=== PATIENT | male | born 1935 | race Caucasian/White ===

== ENCOUNTER 2020-12-02 14:46 | Inpatient (IN) | payer OTHER ==
[~2020-12-02] VITALS: Ht 170.2 cm; Wt 62.2 kg
[~2020-12-02 14:46] MED LIST: ALLO300T2 PO; AMLO-489 PO; LISI40TA11 PO
[2020-12-02 16:32] LABS: Urine Bacteria FEW /hpf (None Seen); Urine Blood 3+ /uL (Negative); Urine Mucus FEW (None Seen); Urine Specific Gravity 1.019 (1.001-1.035); Urine WBC <1 /hpf (0 - 3)
[2020-12-02] MEDS ORDERED: SODIUM CHLORIDE 0.9% 1,000 ML IVB ONE (17:30)
[2020-12-02 18:24] LABS: Basophils # (auto) 0 10 ^3/uL (0-0.2); Eosinophils # (auto) 0 10 ^3/uL (0-0.8); White Blood Cell 11.6 10^3/uL (4.4-10.8)
[2020-12-02 18:25] LABS: Basophils % (auto) 0.1 % (0.0-2.0); Hematocrit 52.6 % (41.0-53.0); Hemoglobin 18.1 g/dL (13.5-17.5); Lymphocytes # (auto) 0.9 10 ^3/uL (0.4-5.4); Lymphocytes % (auto) 7.3 % (10.0-50.0); Mean Corpuscular Hemoglobin 33.6 pg (28.0-32.0); Mean Corpuscular Hgb Conc. 34.4 g/dL (32.0-36.0); Mean Corpuscular Volume 97.6 fL (80.0-100.0); Monocytes # (auto) 1.6 10 ^3/uL (0-1.3); Monocytes % (auto) 13.8 % (0.0-12.0); Neutrophils # (auto) 9.1 10 ^3/uL (1.6-8.6); Neutrophils % (auto) 78.8 % (37.0-80.0); Nucleated Red Blood Cells % 0.5 %; Platelet Count (auto) 157 10^3/uL (140-450); Red Blood Cells 5.39 10^6/uL (4.5-5.90); Red Cell Distribution Width 15.8 % (11.8-14.3)
[2020-12-02 18:39] LABS: Albumin 3.1 g/dL (3.4-5.0); Calcium 8.8 mg/dL (8.5-10.1); Potassium 3.4 mmol/L (3.5-5.1)
[2020-12-02 18:40] LABS: INR 1.15 (0.9-1.15); Partial Thromboplastin Time 28.5 sec (23.0-31.2)
[2020-12-02 18:46] LABS: BUN/Creatinine Ratio 28.3; Bilirubin, Total 4.8 mg/dL (0.2-1.0); Total Protein 6.1 g/dL (6.4-8.2)
[2020-12-02] MEDS ORDERED: ONDANSETRON HCL 4 MG/2 ML VIAL IV PRN (23:00)
[2020-12-02] MEDS ORDERED: POTASSIUM CHL 20MEQ/100ML 100 ML IV ONE (23:00)
[2020-12-02] MEDS ORDERED: MORPHINE SULF INJ 2 MG/ML SYRINGE 1ML IV PRN (23:00)
[2020-12-02] MEDS ORDERED: DEXTROSE (50%) 50ML SYRG IV PRN (23:00)
[2020-12-02] MEDS ORDERED: NITROGLYCERIN 0.4 MG SL TAB SL PRN (23:00)
[2020-12-02] MEDS: SOD CHL 0.45% 1,000 ML IV SCH (23:00)
[2020-12-02] MEDS ORDERED: DOCUSATE SOD 100 MG CAP PO PRN (23:00)
[2020-12-02] MEDS ORDERED: ACETAMINOPHEN 325 MG TAB PO PRN (23:00)
[2020-12-03 05:24] LABS: Basophils # (auto) 0 10 ^3/uL (0-0.2); Basophils % (auto) 0.3 % (0.0-2.0); Eosinophils # (auto) 0 10 ^3/uL (0-0.8); Lymphocytes # (auto) 0.8 10 ^3/uL (0.4-5.4); Monocytes # (auto) 1.1 10 ^3/uL (0-1.3); Red Blood Cells 4.93 10^6/uL (4.5-5.90)
[2020-12-03 05:26] LABS: Eosinophils % (auto) 0.6 % (0.0-7.0); Hemoglobin 16.8 g/dL (13.5-17.5); Lymphocytes % (auto) 9.8 % (10.0-50.0); Mean Corpuscular Hemoglobin 34.1 pg (28.0-32.0); Mean Corpuscular Volume 97.4 fL (80.0-100.0); Monocytes % (auto) 14.1 % (0.0-12.0); Neutrophils # (auto) 5.8 10 ^3/uL (1.6-8.6); Neutrophils % (auto) 75.2 % (37.0-80.0); Nucleated Red Blood Cells % 0.2 %; Platelet Count (auto) 116 10^3/uL (140-450); Red Cell Distribution Width 15.3 % (11.8-14.3); White Blood Cell 7.7 10^3/uL (4.4-10.8)
[2020-12-03 06:25] LABS: Anion Gap 11 (5-15); BUN/Creatinine Ratio 31.2; Blood Urea Nitrogen 29 mg/dL (7-18); Carbon Dioxide 23 mmol/L (21-32); Chloride 105 mmol/L (98-107); GFR African American 100 mL/min; GFR Non-African American 82 mL/min; Potassium 3.7 mmol/L (3.5-5.1); Sodium 139 mmol/L (136-145)
[2020-12-03 06:26] LABS: Alanine Aminotransferase 59 U/L (16-61); Albumin 2.7 g/dL (3.4-5.0); Alkaline Phosphatase 131 U/L (45-117); Aspartate Aminotransferase 173 U/L (15-37); Bilirubin, Total 4.1 mg/dL (0.2-1.0); Calcium 7.8 mg/dL (8.5-10.1); Total Protein 5.4 g/dL (6.4-8.2)
[2020-12-03 06:42] LABS: Cholesterol 115 mg/dL (< 200); Glucose 69 mg/dL (74-106); Triglycerides 80 mg/dL (< 150)
[2020-12-03 06:44] LABS: HDL Cholesterol 92 mg/dL (40-59)
[2020-12-03 06:50] LABS: LDL Cholesterol 30 mg/dL (< 100)
[2020-12-03] MEDS: InsuLIN REG 1unit/0.01ml Soln (100units/ml) SC SCH ×4 (07:00→22:00)
[2020-12-03] MEDS: ACCU-CHEK COMFORT CURVE STRIP VI SCH ×4 (07:06→22:29)
[2020-12-03] MEDS: ASCORBIC ACID 500 MG TAB PO SCH ×2 (10:12→22:29)
[2020-12-03] MEDS: MULTIPLE VITAMIN TAB PO SCH (10:12)
[2020-12-03] MEDS: FAMOTIDINE 20 MG TAB PO SCH ×2 (10:12→22:29)
[2020-12-03] MEDS: ZINC SULFATE 220mg CAP or TAB PO SCH (10:12)
[2020-12-03] MEDS: ASPirin 81 mg TAB PO SCH (10:12)
[2020-12-03] MEDS: ALLOPURINOL 100 MG TAB PO SCH (10:12)
[2020-12-03 17:30] VITALS: BP 156/112
[2020-12-03] MEDS: hydrALAZINE HCL 10 MG TAB PO PRN (17:58)
[2020-12-03] MEDS: SOD CHL 0.45% 1,000 ML IV SCH (20:00)
[2020-12-03] MEDS ORDERED: LORazepam 2MG/ML-1ML VIAL IV PRN (21:15)
[2020-12-03 22:05] VITALS: BP 159/84
[2020-12-03] MEDS: ATORVASTATIN 20 MG TAB PO SCH (22:29)
[2020-12-04 05:09] VITALS: BP 166/80
[2020-12-04] MEDS: ACCU-CHEK COMFORT CURVE STRIP VI SCH ×4 (07:00→22:00)
[2020-12-04] MEDS: InsuLIN REG 1unit/0.01ml Soln (100units/ml) SC SCH ×3 (07:00→17:00)
[2020-12-04 07:22] LABS: Basophils # (auto) 0 10 ^3/uL (0-0.2); Basophils % (auto) 0.4 % (0.0-2.0); Eosinophils # (auto) 0.1 10 ^3/uL (0-0.8); Eosinophils % (auto) 1.7 % (0.0-7.0); Hematocrit 46.9 % (41.0-53.0); Hemoglobin 16.4 g/dL (13.5-17.5); Lymphocytes # (auto) 1.1 10 ^3/uL (0.4-5.4); Lymphocytes % (auto) 15.9 % (10.0-50.0); Mean Corpuscular Hemoglobin 33.6 pg (28.0-32.0); Mean Corpuscular Hgb Conc. 34.9 g/dL (32.0-36.0); Mean Corpuscular Volume 96.3 fL (80.0-100.0); Monocytes % (auto) 14.4 % (0.0-12.0); Neutrophils # (auto) 4.9 10 ^3/uL (1.6-8.6); Neutrophils % (auto) 67.6 % (37.0-80.0); Nucleated Red Blood Cells % 0.2 %; Platelet Count (auto) 109 10^3/uL (140-450); Red Blood Cells 4.87 10^6/uL (4.5-5.90); Red Cell Distribution Width 15.2 % (11.8-14.3); White Blood Cell 7.2 10^3/uL (4.4-10.8)
[2020-12-04 07:36] LABS: BUN/Creatinine Ratio 28.9; Calcium 7.9 mg/dL (8.5-10.1); Magnesium 1.8 mg/dL (1.6-2.6); Potassium 3.2 mmol/L (3.5-5.1)
[2020-12-04] MEDS: MULTIPLE VITAMIN TAB PO SCH (08:35)
[2020-12-04] MEDS: ASPirin 81 mg TAB PO SCH (08:35)
[2020-12-04] MEDS: ALLOPURINOL 100 MG TAB PO SCH (08:36)
[2020-12-04] MEDS: FAMOTIDINE 20 MG TAB PO SCH ×2 (08:36→22:00)
[2020-12-04] MEDS: ASCORBIC ACID 500 MG TAB PO SCH ×2 (08:37→22:00)
[2020-12-04] MEDS: ZINC SULFATE 220mg CAP or TAB PO SCH (08:38)
[2020-12-04] MEDS: HYDROcodone-ACET 5/325MG TAB PO PRN ×3 (08:38→23:30)
[2020-12-04] MEDS ORDERED: HALOPERIDOL LACTATE 5 MG/ML INJ VIAL ONE (09:11)
[2020-12-04] MEDS ORDERED: CYANOCOBALAMIN (B-12) 1000 MCG/1 ML VIAL IM ONE (09:15)
[2020-12-04 12:29] LABS: Folate (Folic Acid) 7.72 ng/mL (5.38-24)
[2020-12-04 13:08] VITALS: BP 150/77
[2020-12-04] MEDS ORDERED: POTASSIUM CHL 20 Meq TABLET PO ONE (17:00)
[2020-12-04 17:18] VITALS: BP 134/77
[2020-12-04] MEDS: CYANOCOBALAMIN 500 MCG TAB PO SCH (17:37)
[2020-12-04] MEDS: D5W/SOD CHL 0.45% 1,000 ML IV SCH (20:30)
[2020-12-04 21:57] VITALS: BP 169/111
[2020-12-04] MEDS: ATORVASTATIN 20 MG TAB PO SCH (22:00)
[2020-12-05] MEDS: HALOPERIDOL LACTATE 5 MG/ML INJ VIAL IM PRN ×2 (02:14→22:15)
[2020-12-05 05:00] VITALS: BP 167/94
[2020-12-05] MEDS: ACCU-CHEK COMFORT CURVE STRIP VI SCH ×4 (07:00→22:15)
[2020-12-05 07:12] LABS: Basophils # (auto) 0.1 10 ^3/uL (0-0.2); Basophils % (auto) 1.1 % (0.0-2.0); Eosinophils # (auto) 0.2 10 ^3/uL (0-0.8); Eosinophils % (auto) 2.8 % (0.0-7.0); Hematocrit 43.7 % (41.0-53.0); Hemoglobin 15.2 g/dL (13.5-17.5); Lymphocytes % (auto) 16.7 % (10.0-50.0); Mean Corpuscular Hemoglobin 33.4 pg (28.0-32.0); Mean Corpuscular Hgb Conc. 34.7 g/dL (32.0-36.0); Mean Corpuscular Volume 96.4 fL (80.0-100.0); Monocytes # (auto) 0.8 10 ^3/uL (0-1.3); Monocytes % (auto) 14.4 % (0.0-12.0); Neutrophils # (auto) 3.7 10 ^3/uL (1.6-8.6); Nucleated Red Blood Cells % 0.2 %; Platelet Count (auto) 120 10^3/uL (140-450); Red Blood Cells 4.54 10^6/uL (4.5-5.90); Red Cell Distribution Width 14.9 % (11.8-14.3); White Blood Cell 5.7 10^3/uL (4.4-10.8)
[2020-12-05 07:30] LABS: Calcium 7.9 mg/dL (8.5-10.1); Magnesium 1.7 mg/dL (1.6-2.6); Potassium 3.9 mmol/L (3.5-5.1)
[2020-12-05 08:56] VITALS: BP 150/78
[2020-12-05] MEDS: ASPirin 81 mg TAB PO SCH (09:48)
[2020-12-05] MEDS: ZINC SULFATE 220mg CAP or TAB PO SCH (09:48)
[2020-12-05] MEDS: ALLOPURINOL 100 MG TAB PO SCH (09:49)
[2020-12-05] MEDS: CYANOCOBALAMIN 500 MCG TAB PO SCH (09:49)
[2020-12-05] MEDS: ASCORBIC ACID 500 MG TAB PO SCH ×2 (09:49→22:15)
[2020-12-05] MEDS: FAMOTIDINE 20 MG TAB PO SCH ×2 (09:49→22:15)
[2020-12-05] MEDS: MULTIPLE VITAMIN TAB PO SCH (09:49)
[2020-12-05 12:24] VITALS: BP 143/72
[2020-12-05] MEDS: D5W/SOD CHL 0.45% 1,000 ML IV SCH (16:00)
[2020-12-05 16:18] VITALS: BP 145/76
[2020-12-05] MEDS: ATORVASTATIN 20 MG TAB PO SCH (22:15)
[2020-12-06] MEDS: ACCU-CHEK COMFORT CURVE STRIP VI SCH ×4 (06:20→22:26)
[2020-12-06 07:58] LABS: Albumin 2.8 g/dL (3.4-5.0); Calcium 8.7 mg/dL (8.5-10.1); Magnesium 2.1 mg/dL (1.6-2.6); Potassium 3.8 mmol/L (3.5-5.1)
[2020-12-06 08:03] LABS: Bilirubin, Total 1.7 mg/dL (0.2-1.0); Total Protein 5.5 g/dL (6.4-8.2)
[2020-12-06 08:04] LABS: Basophils # (auto) 0 10 ^3/uL (0-0.2); Basophils % (auto) 0.8 % (0.0-2.0); Eosinophils # (auto) 0.2 10 ^3/uL (0-0.8); Eosinophils % (auto) 2.8 % (0.0-7.0); Lymphocytes % (auto) 18.1 % (10.0-50.0); Mean Corpuscular Hemoglobin 34.4 pg (28.0-32.0); Mean Corpuscular Hgb Conc. 35.5 g/dL (32.0-36.0); Monocytes # (auto) 0.8 10 ^3/uL (0-1.3); Monocytes % (auto) 14.4 % (0.0-12.0); Neutrophils # (auto) 3.6 10 ^3/uL (1.6-8.6); Neutrophils % (auto) 63.9 % (37.0-80.0); Nucleated Red Blood Cells % 0.2 %; Platelet Count (auto) 111 10^3/uL (140-450); Red Blood Cells 4.64 10^6/uL (4.5-5.90); Red Cell Distribution Width 15.5 % (11.8-14.3); White Blood Cell 5.7 10^3/uL (4.4-10.8)
[2020-12-06 09:00] VITALS: BP 121/74
[2020-12-06] MEDS: ASPirin 81 mg TAB PO SCH (09:59)
[2020-12-06] MEDS: ZINC SULFATE 220mg CAP or TAB PO SCH (09:59)
[2020-12-06] MEDS: FAMOTIDINE 20 MG TAB PO SCH ×2 (10:00→21:46)
[2020-12-06] MEDS: CYANOCOBALAMIN 500 MCG TAB PO SCH (10:00)
[2020-12-06] MEDS: MULTIPLE VITAMIN TAB PO SCH (10:00)
[2020-12-06] MEDS: ALLOPURINOL 100 MG TAB PO SCH (10:00)
[2020-12-06] MEDS: ASCORBIC ACID 500 MG TAB PO SCH ×2 (10:00→21:46)
[2020-12-06 12:34] VITALS: BP 151/79
[2020-12-06 17:00] VITALS: BP 150/84
[2020-12-06] MEDS: ATORVASTATIN 20 MG TAB PO SCH (21:46)
[2020-12-06 22:00] VITALS: BP 150/84
[2020-12-06] MEDS: hydrALAZINE HCL 10 MG TAB PO PRN (22:27)
[2020-12-07] MEDS ORDERED: hydrALAZINE HCL 20 MG/ML VL IV ONE (00:15)
[2020-12-07 05:04] VITALS: BP 159/81
[2020-12-07 06:19] LABS: Eosinophils # (auto) 0.2 10 ^3/uL (0-0.8); Mean Corpuscular Hgb Conc. 35.5 g/dL (32.0-36.0)
[2020-12-07] MEDS: ACCU-CHEK COMFORT CURVE STRIP VI SCH ×4 (06:20→21:36)
[2020-12-07 06:23] LABS: Basophils # (auto) 0.1 10 ^3/uL (0-0.2); Basophils % (auto) 0.9 % (0.0-2.0); Eosinophils % (auto) 2.6 % (0.0-7.0); Hematocrit 47.9 % (41.0-53.0); Lymphocytes # (auto) 1.2 10 ^3/uL (0.4-5.4); Lymphocytes % (auto) 18.6 % (10.0-50.0); Mean Corpuscular Hemoglobin 34.2 pg (28.0-32.0); Mean Corpuscular Volume 96.3 fL (80.0-100.0); Monocytes # (auto) 1.1 10 ^3/uL (0-1.3); Monocytes % (auto) 16.3 % (0.0-12.0); Neutrophils % (auto) 61.6 % (37.0-80.0); Nucleated Red Blood Cells % 0.1 %; Platelet Count (auto) 132 10^3/uL (140-450); Red Blood Cells 4.98 10^6/uL (4.5-5.90); Red Cell Distribution Width 15.6 % (11.8-14.3); White Blood Cell 6.5 10^3/uL (4.4-10.8)
[2020-12-07 06:39] LABS: BUN/Creatinine Ratio 28.4; Calcium 9.1 mg/dL (8.5-10.1); Magnesium 2.1 mg/dL (1.6-2.6); Potassium 3.3 mmol/L (3.5-5.1)
[2020-12-07 09:00] VITALS: BP 144/84
[2020-12-07] MEDS: ASPirin 81 mg TAB PO SCH (10:07)
[2020-12-07] MEDS: ZINC SULFATE 220mg CAP or TAB PO SCH (10:07)
[2020-12-07] MEDS: MULTIPLE VITAMIN TAB PO SCH (10:08)
[2020-12-07] MEDS: ALLOPURINOL 100 MG TAB PO SCH (10:08)
[2020-12-07] MEDS: CYANOCOBALAMIN 500 MCG TAB PO SCH (10:08)
[2020-12-07] MEDS: ASCORBIC ACID 500 MG TAB PO SCH ×2 (10:08→21:35)
[2020-12-07] MEDS: FAMOTIDINE 20 MG TAB PO SCH ×2 (10:08→21:35)
[2020-12-07 13:21] VITALS: BP 139/76
[2020-12-07] MEDS ORDERED: POTASSIUM CHL 20 Meq TABLET PO ONE (16:15)
[2020-12-07 16:57] VITALS: BP 135/89
[2020-12-07 18:45] VITALS: BP 158/88
[2020-12-07] MEDS: hydrALAZINE HCL 10 MG TAB PO PRN (18:45)
[2020-12-07] MEDS: ATORVASTATIN 20 MG TAB PO SCH (21:35)
[2020-12-07 22:00] VITALS: BP 152/78
[2020-12-08 05:00] VITALS: BP 126/64
[2020-12-08] MEDS: ACCU-CHEK COMFORT CURVE STRIP VI SCH ×2 (06:39→11:56)
[2020-12-08 07:03] LABS: Eosinophils # (auto) 0.2 10 ^3/uL (0-0.8); Hemoglobin 15.6 g/dL (13.5-17.5); Mean Corpuscular Hemoglobin 34.6 pg (28.0-32.0); Nucleated Red Blood Cells % 0.1 %
[2020-12-08 07:04] LABS: Basophils # (auto) 0 10 ^3/uL (0-0.2); Basophils % (auto) 0.7 % (0.0-2.0); Eosinophils % (auto) 3.7 % (0.0-7.0); Hematocrit 43.6 % (41.0-53.0); Lymphocytes # (auto) 1.1 10 ^3/uL (0.4-5.4); Lymphocytes % (auto) 18.9 % (10.0-50.0); Mean Corpuscular Hgb Conc. 35.8 g/dL (32.0-36.0); Mean Corpuscular Volume 96.7 fL (80.0-100.0); Monocytes % (auto) 15.8 % (0.0-12.0); Neutrophils # (auto) 3.7 10 ^3/uL (1.6-8.6); Neutrophils % (auto) 60.9 % (37.0-80.0); Platelet Count (auto) 135 10^3/uL (140-450); Red Blood Cells 4.51 10^6/uL (4.5-5.90); Red Cell Distribution Width 15.6 % (11.8-14.3); White Blood Cell 6.1 10^3/uL (4.4-10.8)
[2020-12-08 07:30] LABS: Calcium 8.4 mg/dL (8.5-10.1); Magnesium 1.8 mg/dL (1.6-2.6); Potassium 4.3 mmol/L (3.5-5.1)
[2020-12-08 07:32] LABS: BUN/Creatinine Ratio 26.9
[2020-12-08 09:00] VITALS: BP 121/65
[2020-12-08] MEDS: ZINC SULFATE 220mg CAP or TAB PO SCH (10:38)
[2020-12-08] MEDS: ASPirin 81 mg TAB PO SCH (10:38)
[2020-12-08] MEDS: ASCORBIC ACID 500 MG TAB PO SCH (10:39)
[2020-12-08] MEDS: ALLOPURINOL 100 MG TAB PO SCH (10:39)
[2020-12-08] MEDS: FAMOTIDINE 20 MG TAB PO SCH (10:39)
[2020-12-08] MEDS: CYANOCOBALAMIN 500 MCG TAB PO SCH (10:39)
[2020-12-08] MEDS: MULTIPLE VITAMIN TAB PO SCH (10:39)
== END 2020-12-08 13:32 | disposition home health service (06) | DRG 57 ==
LOC: EDBD 14:46 → ER 14:46 → TELE 22:52 → TELE-WESTW 12-03 17:13
PROVIDERS: ADMIT Nurse Practitioner Family; ATTEND Internal Medicine
DX: G91.2 (Idiopathic) normal pressure hydrocephalus (principal); R26.0 Ataxic gait; E16.2 Hypoglycemia, unspecified; E88.09 Other disorders of plasma-protein metabolism, not elsewhere classified; F02.80 Dementia in other diseases classified elsewhere, unspecified severity, without behavioral disturbance, psychotic disturbance, mood disturbance, and anxiety; G30.9 Alzheimer's disease, unspecified; I12.9 Hypertensive chronic kidney disease with stage 1 through stage 4 chronic kidney disease, or unspecified chronic kidney disease; N18.9 Chronic kidney disease, unspecified; R41.0 Disorientation, unspecified; Z20.822 Contact with and (suspected) exposure to COVID-19; R45.1 Restlessness and agitation; E53.8 Deficiency of other specified B group vitamins; M10.9 Gout, unspecified; I95.9 Hypotension, unspecified; R19.7 Diarrhea, unspecified; Z82.0 Family history of epilepsy and other diseases of the nervous system; Z83.3 Family history of diabetes mellitus; Z85.828 Personal history of other malignant neoplasm of skin; Z87.440 Personal history of urinary (tract) infections; Z88.0 Allergy status to penicillin
CPT/HCPCS: 36415; 70450; 70551; 71045; 80048; 80053; 80061; 81001; 82607; 82746; 82962; 83036; 83605; 83735; 84443; 84484; 85025; 85610; 85730; 87040; 87426; 93005; 95819; 96361; 96365; 97116; 97163; G0378; J3480

== ENCOUNTER 2020-12-17 21:14 | Emergency (ER) | payer OTHER ==
[~2020-12-17] VITALS: Ht 172.7 cm; Wt 59.0 kg
[2020-12-17 22:29] LABS: Basophils # (auto) 0.1 10 ^3/uL (0-0.2); Basophils % (auto) 1.2 % (0.0-2.0); Eosinophils # (auto) 0.2 10 ^3/uL (0-0.8); Eosinophils % (auto) 2.7 % (0.0-7.0); Hematocrit 42.5 % (41.0-53.0); Hemoglobin 14.6 g/dL (13.5-17.5); Lymphocytes # (auto) 1.5 10 ^3/uL (0.4-5.4); Lymphocytes % (auto) 21.3 % (10.0-50.0); Mean Corpuscular Hemoglobin 32.9 pg (28.0-32.0); Mean Corpuscular Hgb Conc. 34.4 g/dL (32.0-36.0); Mean Corpuscular Volume 95.8 fL (80.0-100.0); Monocytes # (auto) 0.8 10 ^3/uL (0-1.3); Neutrophils # (auto) 4.4 10 ^3/uL (1.6-8.6); Neutrophils % (auto) 62.8 % (37.0-80.0); Nucleated Red Blood Cells % 0.1 %; Platelet Count (auto) 328 10^3/uL (140-450); Red Blood Cells 4.44 10^6/uL (4.5-5.90); Red Cell Distribution Width 15.1 % (11.8-14.3); White Blood Cell 7.1 10^3/uL (4.4-10.8)
[2020-12-17 22:50] LABS: Albumin 3.4 g/dL (3.4-5.0); BUN/Creatinine Ratio 22.4; Calcium 8.6 mg/dL (8.5-10.1)
[2020-12-17 22:53] LABS: Total Protein 6.7 g/dL (6.4-8.2)
[2020-12-17 23:00] VITALS: BP 133/62
[2020-12-17] MEDS ORDERED: KETOROLAC TROMETH 30 MG/ML 1ML VIAL IV ONE (23:30)
== END 2020-12-18 00:57 | disposition home or self-care (01) ==
LOC: ER 21:15
DX: M79.672 Pain in left foot (principal); I10 Essential (primary) hypertension; R06.02 Shortness of breath; Z88.0 Allergy status to penicillin
CPT/HCPCS: 36415; 73630; 80053; 83880; 84550; 85025; 96374; 99284; J1885

== ENCOUNTER 2021-04-12 07:28 | Emergency (ER) | payer OTHER ==
[~2021-04-12] VITALS: Ht 172.7 cm; Wt 57.2 kg
[2021-04-12 08:09] LABS: Basophils # (auto) 0.1 10 ^3/uL (0-0.2); Basophils % (auto) 0.8 % (0.0-2.0); Eosinophils # (auto) 0.2 10 ^3/uL (0-0.8); Hematocrit 39.8 % (41.0-53.0); Hemoglobin 13.4 g/dL (13.5-17.5); Lymphocytes # (auto) 1.6 10 ^3/uL (0.4-5.4); Lymphocytes % (auto) 22.7 % (10.0-50.0); Mean Corpuscular Hemoglobin 31.3 pg (28.0-32.0); Mean Corpuscular Hgb Conc. 33.7 g/dL (32.0-36.0); Monocytes # (auto) 0.7 10 ^3/uL (0-1.3); Monocytes % (auto) 9.8 % (0.0-12.0); Neutrophils # (auto) 4.5 10 ^3/uL (1.6-8.6); Neutrophils % (auto) 63.7 % (37.0-80.0); Red Blood Cells 4.28 10^6/uL (4.5-5.90); Red Cell Distribution Width 15.2 % (11.8-14.3); White Blood Cell 7.1 10^3/uL (4.4-10.8)
[2021-04-12 08:10] LABS: Urine Bacteria NONE SEEN /hpf (None Seen); Urine Blood 3+ /uL (Negative); Urine Budding Yeast MODERATE /hpf (None Seen); Urine Mucus FEW (None Seen); Urine Specific Gravity 1.025 (1.001-1.035); Urine WBC 27 /hpf (0 - 3)
[2021-04-12 08:24] LABS: Albumin 3.6 g/dL (3.4-5.0); Calcium 8.9 mg/dL (8.5-10.1)
[2021-04-12 08:27] LABS: Bilirubin, Total 1.3 mg/dL (0.2-1.0); Total Protein 6.9 g/dL (6.4-8.2)
[2021-04-12 08:56] VITALS: BP 147/84
== END 2021-04-12 09:21 | disposition home or self-care (01) ==
LOC: ER 07:28
DX: R31.9 Hematuria, unspecified (principal); N40.0 Benign prostatic hyperplasia without lower urinary tract symptoms; I10 Essential (primary) hypertension; Z79.899 Other long term (current) drug therapy; Z88.0 Allergy status to penicillin
CPT/HCPCS: 36415; 74176; 80053; 81001; 85025